=== PATIENT | female | born 1925 | race Caucasian/White ===

== ENCOUNTER 2016-06-03 11:03 | Emergency (ER) | payer MEDICARE, BC ==
[2014-09-04 10:26] VITALS: BMI 30.2
[~2016-06-03 11:03] MED LIST: ACETAMINOPHEN500 M1 PO; AMPICILLIN TRI500 MG PO; ATENOLOL25 MG PO; BAYER CHEWABLE81 MG PO; BISCOLAX10 MG/SUPP RC; BUMEX 1 MG TAB1 MG PO; CALCITONIN IM; CIPRO500 MG PO; COLACE100 MG PO; HYDROCODON-ACE1 EAC6 BC; IPRAT-ALBUT 0.5-3 ML UPD; KEFLEX500 MG PO; LASIX40 MG PO; LASIX80 MG PO; LEVAQUIN250 MG PO; LEVAQUIN500 MG PO; LISINOPRIL5 MG PO; LOTENSIN10 MG PO; MAG-OX 400 MG400 MG PO; MIACALCIN IM; MICRO-K10 MEQ PO; MILK OF MAGNESI30 ML PO; MINOCIN BC; MYCOSTATIN15 GM TP; NEUTRA-PHOS PAC1 PK1 PO; NITRO-DUR0.2 MG; NORCO 5/325 TAB1 TA1 PO; PEPCID20 MG PO; PERCOCET 5-3251 TAB PO; PRADAXA150 MG PO; PRAVACHOL80 MG PO; PREDNISONE10 MG; SENSIPAR30 MG PO; SENSIPAR60 MG PO; SYNTHROID75 MCG PO; TENORMIN100 MG PO; TENORMIN25 MG PO; TENORMIN50 MG PO; TUMS500 MG PO; ZAROXOLYN5 MG BC; ZYLOPRIM300 MG PO
== END 2016-06-03 12:45 | disposition home or self-care (01) ==
LOC: D.ER 11:03
DX: S81.811A Laceration without foreign body, right lower leg, initial encounter (principal); W22.8XXA Striking against or struck by other objects, initial encounter; Y93.89 Activity, other specified; Y92.019 Unspecified place in single-family (private) house as the place of occurrence of the external cause; I10 Essential (primary) hypertension; E83.52 Hypercalcemia